=== PATIENT | male | born 1950 | race Asian ===

== ENCOUNTER 2017-09-26 12:40 | Inpatient (IN) | payer MEDICARE, MEDICAID ==
--- NOTE | 2017-09-26 13:09 | ED Physician Chart ---
ED Chief Complaint/HPI - Patient Information Date Seen:: 09/26/17 Time Seen:: 12:55 Chief Complaint:: Syncope History of Present Illness:: onset x one day of syncope episodes; no report of trauma, H/As, S/T, neck pain, C/P, cough, Abd. Pain, SOB, A/N/V/D/C, fever, chills, weakness, dizziness, vertigo, paresthesias, or urinary s/s Allergies:: Allergies Allergy/AdvReac Type Severity Reaction Status Date / Time No Known Allergies Allergy Verified 09/26/17 12:54 Vitals:: Vital Signs - 8 hr 09/26/17 12:54 Temp 99.1 F HR 107 RR 16 BP 91/52 O2 Sat % 98 Historian:: Patient Review:: Nurse's Note Reviewed ED Review of Systems - Review of Systems General/Constitutional: No fever, No chills, No weight loss, No weakness, No diaphoresis, No edema, No loss of appetite Skin: No skin lesions, No rash, No bruising Head: No headache, No light-headedness Eyes: No loss of vision, No pain, No diplopia ENT: No earache, No nasal drainage, No sore throat, No tinnitus Neck: No neck pain, No swelling, No thyromegaly, No stiffness, No mass noted Cardio Vascular: No chest pain, No palpitations, No PND, No orthopnea, No edema Pulmonary: No SOB, No cough, No sputum, No wheezing GI: No nausea, No vomiting, No diarrhea, No pain, No melena, No hematochezia, No constipation, No hematemesis G/U: No dysuria, No frequency, No hematuria, No nacturia Musculoskeletal: No bone or joint pain, No back pain, No muscle pain Endocrine: No polyuria, No polydipsia Psychiatric: No prior psych history, No depression, No anxiety, No suicidal ideation, No homicidal ideation, No auditory hallucination, No visual hallucination Hematopoietic: No bruising, No lymphadenopathy Allergic/Immuno: No urticaria, No angioedema Neurological: Syncope, No focal symptoms, No weakness, No paresthesia, No headache, No seizure, No dizziness, No confusion, No vertigo ED Past Medical History - Past Medical History Obtainable: Yes Past Medical History: HTN, DM, Dyslipidemia Family History: Diabetes Melitus, HTN Social History: Non Smoker, No Alcohol, No Drug Use, , Employed Surgical History: None Psychiatricy History: None Medication: Reviewed Family Medical History - Family Member Mother History Unknown: Yes ED Physical Exam - Physical Examination General/Constitutional: Awake, Well-developed, well-nourished, Alert, No distress, GCS 15, Non-toxic appearing, Ambulatory Head: Atraumatic Eyes: Lids, conjuctiva normal, PERRL, EOMI Skin: Nl inspection, No rash, No skin lesions, No ecchymosis, Well hydrated, No lymphadenopathy ENMT: External ears, nose nl, TM canals nl, Nasal exam nl, Lips, teeth, gums nl , Oropharynx nl, Tonsils nl Neck: Nontender, Full ROM w/o pain, No JVD, No nuchal rigidity, No bruit, No mass, No stridor Respiratory: Nl effort/Exclusion, Clear to Auscultation, No Wheeze/Rhonchi/Rales Cardio Vascular: RRR, No murmur, gallop, rubs, NL S1 S2, Carotid/Femoral/Distal pulses equal bilaterally GI: No tenderness/rebounding/guarding, No organomegaly, No hernia, Normal BS's, Nondistended, No mass/bruits, No McBurney tenderness : No CVA tenderness Extremities: No tenderness or effusion, Full ROM, normal strength in all extremities, No edema, Normal digits & nails Neuro/Psych: Alert/oriented, DTR's symmetric, Normal sensory exam, Normal motor strength, Judgement/insight normal, Mood normal, Normal gait, No focal deficits Misc: Normal back, No paraspinal tenderness ED Labs/Radiology/EKG Results - Lab Results Results: Laboratory Tests 09/26/17 12:59 POC Glucose 177 H Comments:: Na+: 128; + Anemia; BUN: 28; Cr: 1.7; H/H: 7.6/22.8 - Radiology Results Comments:: CXR: ? Infiltrates; Head CAT Scan: NAD - EKG Interpretations EKG Time:: 13:18 Rate & Rhythm: 98; NSR Comments:: VINNY; non-specific st-t changes ED Septic Shock - . Is Septic Shock (SBP<90, OR Lactate>4 mmol\L) present?: No - <6hrs of presentation: Vital Signs: Vital Signs - 8 hr 09/26/17 12:54 Temp 99.1 F HR 107 RR 16 BP 91/52 O2 Sat % 98 ED Reassessment (Disposition) - Reassessment Reassessment Condition:: Improved - Diagnosis Diagnosis:: Syncope; LOC; ALOC; AMS; DM; HTN; Hyperlipidemia; Anemia; Hyponatremia; Dehydration; GI Bleed; PNA; Sepsis - Aftercare/Follow up Instructions Aftercare/Follow-Up Instructions:: Counseled pt regarding lab results/diagnosis & need follow up, Counseled pt & family regarding lab results/diagnosis & need follow up - Patient Disposition Discharge/Transfer:: Acute Care w/in this hosp Accepting Physician:: Dr. White Time Called:: [id number] Time Responded:: 14:45 Admitted to:: Telemetry Spoke to:: Dr. White Admitting Medical Physician:: Dr. White Condition at Disposition:: Stable, Improved
[2017-09-26 13:20] LABS: % LYMPHOCYTES 27.8 % (20.0-50.0); BASOPHILE ABSOLUTE 0.1 Th/cumm (0-0.2); EOSINOPHILE ABSOLUTE 0.7 Th/cmm (0.1-0.4); LYMPHOCYTE ABSOLUTE 2.2 Th/cmm (1.5-3.0); MONOCYTE ABSOLUTE 0.4 Th/cmm (0.3-1.0)
[2017-09-26 13:25] LABS: % BASOPHILS 1.3 % (0.0-2.0); % EOSINOPHILS 9.3 % (0.0-5.0); % NEUTROPHILS 56.6 % (40.0-80.0); MEAN CELL VOLUME 97.3 fl (80-99); MEAN CORPUSCULAR HEMOGLOBIN 32.2 pg (27.0-31.0); MEAN CORPUSCULAR HGB CONC 33.1 pg (28.0-36.0); MEAN PLATELET VOLUME 6.4 fl; NEUTROPHILE ABSOLUTE 4.4 Th/cmm (1.8-8.0); PLATELET COUNT 319 Th/cmm (150-400); RED BLOOD COUNT 2.35 Mil/cmm (3.80-5.80); RED CELL DISTRIBUTION WIDTH 13.6 % (11.5-20.0); WHITE BLOOD COUNT 7.8 Th/cmm (4.8-10.8)
[2017-09-26 13:27] LABS: HEMATOCRIT 22.8 % (41.0-60); HEMOGLOBIN 7.6 gm/dL (12-16)
[2017-09-26 13:32] LABS: INR 0.92 (0.5-1.4); PROTHROMBIN TIME (TEST) 9.6 SECONDS (9.5-11.5)
[2017-09-26 13:37] LABS: ANION GAP 11.2 (7.0-16.0); BILIRUBIN,TOTAL 0.2 mg/dL (0.3-1.0); CALCIUM SERUM 9.3 mg/dL (8.6-10.3); CARBON DIOXIDE 23.8 mEq/L (21.0-31.0); CREATININE - SERUM 1.7 mg/dL (0.7-1.3); GFR NON AFRICAN-AMERICAN 42.9 ml/min
--- NOTE | 2017-09-26 13:51 | Diagnostic Imaging Report ---
Head CT without intravenous contrast Indication: Syncope Comparison: None Technique: Axial images were obtained from the vertex to the skull base without IV contrast. Coronal reconstructions were made. Total DLP: 559, CTDI31.8 FINDINGS: Images of the brain obtained without contrast demonstrate no acute hemorrhage. No mass lesions identified. The ventricles and basal cisterns are patent. The herman-white matter differentiation is preserved. There is no mass effect or midline shift. Atherosclerosis is noted. There is opacification of the left mastoid air cells. No skull fractures identified. No soft tissue swelling. The paranasal sinuses are clear. IMPRESSION: No acute intracranial abnormality. Atherosclerotic vascular disease. Left mastoid air cell disease, correlate clinically.
[2017-09-26] MEDS ORDERED: Sodium Chloride 0.9% 1,000 ML IV ONE (14:05)
--- NOTE | 2017-09-26 14:25 | Diagnostic Imaging Report ---
CHEST X-RAY: AP view INDICATION: pain COMPARISON: None FINDINGS: There is accentuation of the interstitial lung markings. No focal consolidation. There may be trace left effusion. Heart size normal. Atherosclerosis is noted. Degenerative changes of the spine are noted. IMPRESSION: Accentuation of the interstitial lung markings which may be due to chronic lung changes, however, faint interstitial infiltrate of the left upper lung zone and right lung base cannot be excluded. Clinical correlation recommended. Atherosclerotic vascular disease.
[2017-09-26] MEDS ORDERED: Levofloxacin 500mg/100mL 500 MG/100 ML BAG IV ONE ×2 (16:23→16:29)
[2017-09-26] MEDS ORDERED: Pneumococcal Vaccine 0.5 mL Vial IM ONE (20:17)
[2017-09-26] MEDS ORDERED: Albumin 25% 25gm/100mL 25 GM/100 ML BTL IV ONE ×2 (22:27→22:42)
[2017-09-27] MEDS ORDERED: Albumin 25% 25gm/100mL 25 GM/100 ML BTL IV ONE ×2 (01:00→05:32)
[2017-09-27 05:04] LABS: MEAN CELL VOLUME 97.7 fl (80-99); MEAN CORPUSCULAR HEMOGLOBIN 33.1 pg (27.0-31.0); MEAN CORPUSCULAR HGB CONC 33.9 pg (28.0-36.0); MEAN PLATELET VOLUME 6.2 fl; RED BLOOD COUNT 2.05 Mil/cmm (3.80-5.80); RED CELL DISTRIBUTION WIDTH 13.3 % (11.5-20.0); WHITE BLOOD COUNT 7.2 Th/cmm (4.8-10.8)
[2017-09-27 05:17] LABS: HEMOGLOBIN 6.8 gm/dL (12-16); PLATELET COUNT 255 Th/cmm (150-400)
[2017-09-27] MEDS ORDERED: Sodium Chloride 0.9% 500 ML IV ONE (05:31)
[2017-09-27 05:59] LABS: ANION GAP 11.4 (7.0-16.0); CHLORIDE 109 mEq/L (98-107); GLUCOSE 109 mg/dL (70-105); POTASSIUM SERUM 4.4 mEq/L (3.5-5.1); SODIUM SERUM 136 mEq/L (136-145)
[2017-09-27 06:00] LABS: BUN - UREA NITROGEN 18 mg/dL (7-25); CALCIUM SERUM 8.6 mg/dL (8.6-10.3); GFR AFRICAN-AMERICAN > 60.0 ml/min (>90); GFR NON AFRICAN-AMERICAN > 60.0 ml/min
[2017-09-27 06:01] LABS: BAND NEUTROPHILE 1 % (0-10); EOSINOPHIL 3 % (0-5); LYMPHOCYTE 32 % (20-50); MONOCYTE 5 % (2-10); NEUTROPHILS 49 % (40-80)
[2017-09-27] MEDS: Sodium Chloride 0.9% 1,000 ML IV SCH ×2 (06:11→18:22)
[2017-09-27] MEDS ORDERED: VTE Chemical Prophylaxis Screen/Admission MC PRN (11:45)
[2017-09-27] MEDS ORDERED: Pantoprazole 40 mg/Packet PO SCH (15:15)
[2017-09-27 15:38] LABS: HEMOGLOBIN 9.5 gm/dL (12-16)
[2017-09-27 15:39] LABS: HEMATOCRIT 27.8 % (41.0-60)
--- NOTE | 2017-09-27 17:14 | History & Physical ---
ADMIT DATE: HISTORY OF PRESENT ILLNESS: The patient admitted from the Emergency Room because of syncopal episode, reported no trauma. No chest pain, no shortness of breath. No weakness, no dizziness, no paresthesia. Apparently found to have a low hemoglobin. The patient's blood pressure was low, was admitted to the ICU. REVIEW OF SYSTEMS: The patient has no fever, no chills, no other problems. PAST MEDICAL HISTORY: History of hypertension, diabetes, and hyperlipidemia. PHYSICAL EXAMINATION: GENERAL: Alert, oriented, not in acute distress. VITAL SIGNS: Stable. HEAD: Normal. ENT: Normal. NECK: Supple, nontender. LUNGS: Clear. CARDIOVASCULAR SYSTEM: S1, S2 heard. ABDOMEN: Soft. LABORATORY DATA: Sodium was low at 128. Anemia, hemoglobin was low. BUN and creatinine was high at 28 and 1.7. A chest x-ray showed possible infiltrate, CAT scan was normal. EKG showed non-ST-T changes, VINNY. DIAGNOSES: Syncopal episode, altered level of consciousness, encephalopathy, hypotension, severe anemia, hyperlipidemia, history of diabetes, history of hypertension, hyponatremia, and history of rule out gastrointestinal bleeding, possible pneumonia, rule out sepsis. The patient was admitted and I will go ahead and give a blood transfusion if needed and we will have GI doctor see the patient. We will have Cardiology see the patient and we will give the fluids and we will also give IV antibiotic. We will have Dr. Robert see the patient. We will follow the patient. JOB# [id number]
[2017-09-27] MEDS: cefTRIAXone 1 GM in Sodium Chloride 0.9% 50 ML IV SCH (18:20)
[2017-09-27] MEDS ORDERED: Morphine Sulfate 2 mg/mL 1mL Syr IM PRN (18:55)
[2017-09-27] MEDS: Morphine Sulfate 2 mg/mL 1mL Syr IVP PRN ×2 (19:10→23:20)
--- NOTE | 2017-09-28 00:18 | Consultation ---
DATE OF CONSULTATION: 09/27/2017 HISTORY OF PRESENT ILLNESS: This 67-year-old male patient who was brought to the hospital complaining of syncopal episode. The patient during hospital stay, found to have severe anemia, following this, the patient is admitted to ICU. No complaint of chest pain, no palpitation. PAST MEDICAL HISTORY: The patient has a history of hyperlipidemia, hypertension, and diabetes mellitus type 2. FAMILY HISTORY: Unremarkable. SOCIAL HISTORY: No history of smoking, alcohol abuse. ALLERGIES: No known allergies. PHYSICAL EXAMINATION: VITAL SIGNS: Blood pressure 130/80, pulse 70, respirations 20, and temperature 98. HEAD: Normocephalic. No lumps or bumps. EYES: Pupils equal, reactive to light. Fundi show AV nicking, sclerae white, conjunctivae pink. NECK: Carotid 2+. Normal upstroke. JVD flat. Thyroid not palpable. Lymph nodes not palpable. CHEST: Shows increased AP diameter. No kyphosis, scoliosis. LUNGS: Bilateral bronchovesicular breath sounds. HEART: PMI fifth intercostal space with lateral to midclavicular line. S1, S2. No S3, S4, soft systolic murmur. ABDOMEN: Soft. Liver, spleen not palpable. No organomegaly. Bowel sounds active. NEUROLOGIC: No focal neurological deficit. EXTREMITIES: Peripheral pulses 2+. No pedal edema. CLINICAL IMPRESSION: Syncope, etiology unknown; severe anemia, rule out gastrointestinal bleed; chronic kidney disease, stage II; hyperlipidemia; hypertension; and diabetes mellitus type 2. PLAN: Admit the patient. We will monitor the patient for GI bleed and arrhythmias. The patient has slightly elevated troponin level, probably nonspecific. We will also get an echocardiogram and carotid duplex study. CT scan of the brain. JOB# [id number]
[2017-09-28] MEDS: Morphine Sulfate 2 mg/mL 1mL Syr IVP PRN ×4 (02:40→12:49)
[2017-09-28 05:26] LABS: % BASOPHILS 0.8 % (0.0-2.0); % EOSINOPHILS 4.7 % (0.0-5.0); % LYMPHOCYTES 15.6 % (20.0-50.0); % MONOCYTES 5.3 % (2.0-10.0); % NEUTROPHILS 73.6 % (40.0-80.0); BASOPHILE ABSOLUTE 0.1 Th/cumm (0-0.2); EOSINOPHILE ABSOLUTE 0.5 Th/cmm (0.1-0.4); HEMATOCRIT 31.1 % (41.0-60); HEMOGLOBIN 10.5 gm/dL (12-16); LYMPHOCYTE ABSOLUTE 1.5 Th/cmm (1.5-3.0); MEAN CELL VOLUME 93.5 fl (80-99); MEAN CORPUSCULAR HEMOGLOBIN 31.7 pg (27.0-31.0); MEAN CORPUSCULAR HGB CONC 33.9 pg (28.0-36.0); MEAN PLATELET VOLUME 6.7 fl; MONOCYTE ABSOLUTE 0.5 Th/cmm (0.3-1.0); NEUTROPHILE ABSOLUTE 7.1 Th/cmm (1.8-8.0); PLATELET COUNT 292 Th/cmm (150-400); RED BLOOD COUNT 3.33 Mil/cmm (3.80-5.80); RED CELL DISTRIBUTION WIDTH 15.9 % (11.5-20.0); WHITE BLOOD COUNT 9.7 Th/cmm (4.8-10.8)
[2017-09-28] MEDS: Sodium Chloride 0.9% 1,000 ML IV SCH (05:32)
[2017-09-28 05:38] LABS: INR 0.95 (0.5-1.4); PROTHROMBIN TIME (TEST) 9.9 SECONDS (9.5-11.5)
[2017-09-28 05:40] LABS: ANION GAP 12.6 (7.0-16.0); BUN - UREA NITROGEN 11 mg/dL (7-25); CALCIUM SERUM 8.7 mg/dL (8.6-10.3); CARBON DIOXIDE 19.3 mEq/L (21.0-31.0); CHLORIDE 108 mEq/L (98-107); CREATININE - SERUM 0.7 mg/dL (0.7-1.3); GFR AFRICAN-AMERICAN > 60.0 ml/min (>90); GFR NON AFRICAN-AMERICAN > 60.0 ml/min; GLUCOSE 119 mg/dL (70-105); POTASSIUM SERUM 3.9 mEq/L (3.5-5.1); SODIUM SERUM 136 mEq/L (136-145)
[2017-09-28] MEDS ORDERED: Lidocaine 2% Gel 5 mL TP ONE (09:50)
[2017-09-28] MEDS ORDERED: Propofol 10 mg/mL 20mL Vial **SURGERY USE ONLY IV ONE (09:50)
[2017-09-28] MEDS ORDERED: Pantoprazole 80 MG in Sodium Chloride 0.9% 100 ML IV SCH (12:00)
--- NOTE | 2017-09-28 12:26 | General Progress Note ---
Subjective - Review of Systems Events since last encounter: no cp no sob s/p syncope severe anemia Objective - Results Result Diagrams: 09/28/17 04:40 09/28/17 04:40 Recent Labs: Laboratory Last Values WBC 9.7 Th/cmm (4.8-10.8) 09/28/17 04:40 RBC 3.33 Mil/cmm (3.80-5.80) L 09/28/17 04:40 Hgb 10.5 gm/dL (12-16) L 09/28/17 04:40 Hct 31.1 % (41.0-60) L 09/28/17 04:40 MCV 93.5 fl (80-99) 09/28/17 04:40 MCH 31.7 pg (27.0-31.0) H 09/28/17 04:40 MCHC Differential 33.9 pg (28.0-36.0) 09/28/17 04:40 RDW 15.9 % (11.5-20.0) 09/28/17 04:40 Plt Count 292 Th/cmm (150-400) 09/28/17 04:40 MPV 6.7 fl 09/28/17 04:40 Add Manual Diff YES 09/27/17 04:45 Neutrophils % 73.6 % (40.0-80.0) 09/28/17 04:40 Band Neutrophils % 1 % (0-10) 09/27/17 04:45 Lymphocytes % 15.6 % (20.0-50.0) L 09/28/17 04:40 Monocytes % 5.3 % (2.0-10.0) 09/28/17 04:40 Eosinophils % 4.7 % (0.0-5.0) 09/28/17 04:40 Basophils % 0.8 % (0.0-2.0) 09/28/17 04:40 Neutrophils (Manual) 49 % (40-80) 09/27/17 04:45 Lymphocytes 32 % (20-50) 09/27/17 04:45 Monocytes 5 % (2-10) 09/27/17 04:45 Eosinophils 3 % (0-5) 09/27/17 04:45 PT 9.9 SECONDS (9.5-11.5) 09/28/17 04:40 INR 0.95 (0.5-1.4) 09/28/17 04:40 Sodium 136 mEq/L (136-145) 09/28/17 04:40 Potassium 3.9 mEq/L (3.5-5.1) 09/28/17 04:40 Chloride 108 mEq/L (98-107) H 09/28/17 04:40 Carbon Dioxide 19.3 mEq/L (21.0-31.0) L 09/28/17 04:40 Anion Gap 12.6 (7.0-16.0) 09/28/17 04:40 BUN 11 mg/dL (7-25) 09/28/17 04:40 Creatinine 0.7 mg/dL (0.7-1.3) 09/28/17 04:40 Est GFR ( Amer) > 60.0 ml/min (>90) 09/28/17 04:40 Est GFR (Non-Af Amer) > 60.0 ml/min 09/28/17 04:40 BUN/Creatinine Ratio 15.7 09/28/17 04:40 Glucose 119 mg/dL (70-105) H 09/28/17 04:40 POC Glucose 110 MG/DL (70 - 105) H 09/28/17 09:11 Calcium 8.7 mg/dL (8.6-10.3) 09/28/17 04:40 Total Bilirubin 0.2 mg/dL (0.3-1.0) L 09/26/17 13:13 AST 26 U/L (13-39) 09/26/17 13:13 ALT 26 U/L (7-52) 09/26/17 13:13 Alkaline Phosphatase 39 U/L (34-104) 09/26/17 13:13 Creatine Kinase 190 U/L (30-223) 09/26/17 13:13 Troponin I 0.06 ng/mL (0.01-0.05) H 09/26/17 13:13 B-Natriuretic Peptide 22.8 pg/mL (5.0-100.0) 09/26/17 13:13 Total Protein 6.0 gm/dL (6.0-8.3) 09/26/17 13:13 Albumin 4.0 gm/dL (4.2-5.5) L 09/26/17 13:13 Globulin 2.0 gm/dL 09/26/17 13:13 Albumin/Globulin Ratio 2.0 (1.0-1.8) H 09/26/17 13:13 Triglycerides 234 mg/dL (<150) H 09/26/17 13:13 Cholesterol 145 mg/dL (<200) 09/26/17 13:13 LDL Cholesterol Direct 76 mg/dL (75-193) 09/26/17 13:13 HDL Cholesterol 33 mg/dL (23-92) 09/26/17 13:13 Blood Type O POSITIVE 09/27/17 06:00 Antibody Screen NEGATIVE 09/27/17 06:00 Crossmatch See Detail 09/27/17 06:00 - Physical Exam Vitals and I&O: Vital Signs Temp 98.6 F 09/28/17 04:00 Pulse 83 09/28/17 08:51 Resp 20 09/28/17 12:00 BP 150/75 09/28/17 08:51 Pulse Ox 96 09/28/17 04:00 Intake & Output 09/27/17 09/28/17 09/28/17 18:59 06:59 18:59 Intake Total 2250 1171.667 Output Total 1625 975 Balance 625 196.667 Weight (lbs) 45.677 kg 45.677 kg Intake: Intake, IV Amount 1000 1171.667 Sodium Chloride 0.9% 1, 1000 1121.667 000 ml @ 100 mls/hr IV . Q10H [facility] Rx#:[id number] cefTRIAXone 1 gm In 50 Sodium Chloride 0.9% 50 ml @ 100 mls/hr IV Q24HR [facility] Rx#:[id number] Oral 750 Blood Product 500 Output: Urine 1625 975 Other: # Bowel Movements 0 1 Weight Source Bedscale Bedscale Active Medications: Current Medications Gabapentin (Neurontin) 300 mg PO DAILY [facility] Stop: 11/26/17 08:59 Last Admin: 09/28/17 08:51 Dose: Not Given Sodium Chloride (Nacl 0.9%) 1,000 mls @ 100 mls/hr IV .Q10H [facility] Stop: 11/26/17 05:44 Last Infusion: 09/28/17 06:45 Dose: 100 mls/hr Ceftriaxone Sodium 1 gm/ (Sodium Chloride) 50 mls @ 100 mls/hr IV Q24HR [facility] Stop: 11/26/17 17:14 Last Infusion: 09/27/17 19:00 Dose: Infused Pantoprazole Sodium 80 mg/ (Sodium Chloride) 100 mls @ 10 mls/hr IV Q10H [facility] Stop: 11/27/17 11:59 Last Admin: 09/28/17 11:30 Dose: 10 mls/hr Lisinopril (Zestril) 10 mg PO DAILY [facility] Stop: 11/26/17 08:59 Last Admin: 09/28/17 08:51 Dose: Not Given Metformin HCl (Glucophage) 500 mg PO BID [facility] Stop: 11/26/17 08:59 Last Admin: 09/28/17 10:05 Dose: Not Given Miscellaneous (Vte Chemical Prophylaxis Screen/ Admission) 1 ea [facility] PRN PRN PRN Reason: PROTOCOL Stop: 11/26/17 11:44 Morphine Sulfate (Morphine) 2 mg IVP Q4HR PRN PRN Reason: Abdominal Pain, SEVERE PAIN Stop: 11/26/17 18:55 Last Admin: 09/28/17 05:43 Dose: 2 mg Morphine Sulfate (Morphine) 1 mg IVP Q4HR PRN PRN Reason: Abdominal Pain, MODERATE PAIN Stop: 11/26/17 18:57 Last Admin: 09/28/17 09:01 Dose: 1 mg Ondansetron HCl (Zofran) 4 mg IV Q6H PRN PRN Reason: Nausea / Vomiting Stop: 11/26/17 19:04 Simvastatin (Zocor) 10 mg PO HS [facility]; Protocol Stop: 11/26/17 20:59 Last Admin: 09/27/17 21:00 Dose: 10 mg - Procedures Procedures: Procedures Procedure Code Date TRANSFUSE NONAUT RED BLOOD CELLS IN PERIPH VEIN, [facility] 86127L0 09/26/17
--- NOTE | 2017-09-28 13:03 | Operative Report ---
DATE OF SURGERY: 09/28/2017 INPATIENT EGD AND FLEXIBLE SIGMOIDOSCOPY REPORT PROCEDURE PERFORMED: EGD with biopsy and flexible sigmoidoscopy. ENDOSCOPIST: Ronen Holguin MD PREOPERATIVE DIAGNOSES: Anemia and abdominal pain. POSTOPERATIVE DIAGNOSES: Duodenal ulcers and poor bowel preparation. INDICATION: The patient is a 67-year-old male, who is admitted after a syncopal episode at home and found to be anemic to hemoglobin of 7.0. He also reported having abdominal pain and thus the patient was taken for EGD and attempted colonoscopy. CONSENT: Informed consent was obtained from the patient. The risks and benefits of the procedure were discussed, include but not limited to infection, bleeding, perforation, need for surgery, cardiopulmonary complications, missed pathology and . The patient indicated his understanding of these risks and wished to go forward with the procedure and signed the consent form. ANESTHESIA: The procedure was done in the main operating room under the care of a general anesthesiologist using propofol. PROCEDURE IN DETAIL: The patient was hooked up to the appropriate monitoring devices and general anesthesia was applied. The patient was in the left lateral decubitus position and a mouthpiece was inserted and secured. Next, the gastroscope was introduced into the mouth and guided under direct visualization into the esophagus, stomach and duodenum. The scope was then slowly withdrawn, making sure to examine the entire mucosa in a careful systematic fashion. Retroflexion was performed in the stomach prior to scope straightening and withdrawal from the body. Next, the patient was repositioned into the colonoscopy position. Rectal exam was performed and the scope was then introduced into the anus and guided under direct visualization to the level of the sigmoid colon. However, the bowel preparation was very poor and there was solid stool that could not be suctioned through the scope and thus the procedure was aborted. There was no obvious sign of complication at the end of the procedure. FINDINGS: EGD portion, esophagus: The GE junction was located at 41 cm from the incisors. There was no evidence of esophagitis or esophageal lesion or Swanson's esophagus. Stomach portion: About 300 mL of retained fluid was within the stomach and this was able to be suctioned out. There was no gastric lesion, mass or ulcer within the gastric body or antrum or fundus. There were no varices or gastric varices. Biopsies were taken from the antrum for both histology and LORA testing. Duodenum: Within the duodenal bulb, there were several large ulcers with surrounding erythema and heaped up edges. The ulcer bed had a clean base and there was no visible vessel evidence of recent bleeding. Biopsies were taken from the ulcer edge in several areas. The second portion of the duodenum appeared endoscopically normal. Flexible sigmoidoscopy portion: The examined portion of the rectum and sigmoid appeared normal, although the views were severely limited by the poor bowel preparation. IMPRESSION: 1. Large duodenal bulb ulcer status post biopsies. 2. Poor bowel preparation. DISCUSSION: It is likely that the patient's anemia and bleeding is from the duodenal ulcers as these were quite impressive on exam. This might be due to H. pylori disease or NSAID use and we will have to await the biopsy results. I believe that the patient also likely is suffering some gastric outlet obstruction pathology given the duodenal ulcers are causing an edema effect and not allowing much fluid to pass through into the duodenum. RECOMMENDATIONS: 1. We will place the patient on a PPI drip for the next 24 hours and then he can be on PPI b.i.d. dosing after this. 2. Follow up the gastric and duodenal biopsies. If there is H. pylori there, he will need treatment. 3. The source of the patient's pain and anemia is likely the duodenal ulcer, although we will have to talk with the patient about whether he would like to go forward with another colonoscopy. I do believe this would be preferred to be done as an outpatient after the duodenal ulcers have healed as the edema is preventing him from having a full bowel prep at this time. 4. We will start the patient on clears and see how he does with this. Thank you for allowing me to participate in his care. Please call with any further questions. [facility]# [id number]
[2017-09-28] MEDS: cefTRIAXone 1 GM in Sodium Chloride 0.9% 50 ML IV SCH (16:51)
--- NOTE | 2017-09-28 23:38 | Consultation ---
DATE OF CONSULTATION: 09/28/2017 CONSULTING PHYSICIAN: Dr. White. REASON FOR CONSULTATION: Anemia and abdominal pain. HISTORY OF PRESENT ILLNESS: The patient is a 67-year-old male with past medical history significant for hypertension, type 2 diabetes, and hyperlipidemia who comes into the hospital after a syncopal episode at home. In the ER, the patient was found to have hemoglobin of 7.0, which dropped into the low 6 range. He has since been resuscitated with blood products and now has hemoglobin of 9. The patient denies seeing any black colored stool, hematemesis or coffee ground emesis. However, he does report some abdominal pain and distention. It was for this reason that GI was asked for consultation. PAST MEDICAL HISTORY: Hypertension, type 2 diabetes, hyperlipidemia. PAST SURGICAL HISTORY: The patient denies any abdominal surgeries. FAMILY HISTORY: Noncontributory. SOCIAL HISTORY: The patient denies any smoking or illicit drug use. REVIEW OF SYSTEMS: A 12-point review of systems was performed. The patient has negative other than the pertinent positives mentioned in the history of present illness. ALLERGIES: No known drug allergies. MEDICATIONS: Ceftriaxone, gabapentin, lisinopril, metformin, morphine as needed, Zofran as needed, Protonix daily dosing, and Zocor. PHYSICAL EXAMINATION: VITAL SIGNS: Blood pressure is 150/75, pulse 83 beats per minute, temperature is 98.6, oxygenation 96%. GENERAL: The patient is lying flat in bed, alert and oriented x 3. He appears anxious and in pain. HEENT: Normocephalic, atraumatic. Pupils are equal and reactive to light. Extraocular muscles are intact. Moist mucous membranes. NECK: Supple. No JVD or thyromegaly. LUNGS: Reduced breath sounds at the bases with some crackles. CARDIOVASCULAR: S1, S2 are present, regular rate and rhythm. ABDOMEN: Some mild distention, no guarding, no rebound. Soft on palpation. There is tenderness to palpation and diffusely. EXTREMITIES: 1+ pitting edema bilaterally. Pulses are not present. SKIN: There are no obvious jaundice or cyanosis. LABORATORY DATA: White blood cell count is 9.7, hemoglobin 10.5, on admission it was 7.6, platelet count is 292. INR 0.9. Sodium is 136, BUN is 11, creatinine 0.7, AST is 26, ALT 26, total bilirubin 0.2. There is no abdominal imaging has been performed. IMPRESSION: 1. This is a 67-year-old male who comes into the hospital after a syncopal episode who was noted to have anemia down to 7. The patient also eports abdominal pain and thus is here for GI consultation. 2. Anemia. 3. Epigastric abdominal pain. 4. Abdominal distention. 5. Syncopal episode. 6. History of hypertension, hyperlipidemia, type 2 diabetes. DISCUSSION: Given that this patient is anemic without obvious cause, an endoscopic examination is warranted to look for any evidence of GI related blood loss. The patient also has abdominal pain and thus differential diagnosis includes such entities as peptic ulcer disease, gastric or colonic malignancy or colonic ulceration. RECOMMENDATION: 1. We will attempt EGD and colonoscopy with a bowel preparation the night before with general anesthesia. 2. We will increase the Protonix to twice daily dosing. 3. Continue to trend the hemoglobin and keep this above 8. 4. Further recommendations to follow the endoscopy. 5. Keep n.p.o. until after endoscopy. Thank you for allowing me to participate in his care. Please call me if you have further questions. JOB# [id number]
--- NOTE | 2017-09-29 15:34 | Pathology Report ---
[id number] Collection Date: 09/28/2017 Surgeon: Dr. Sejal Holguin Specimen Description: 1. Duodenal ulcer biopsy 2. Antrum biopsy Gross Description: Part I: Received in formalin are multiple cheek soft tissue fragments, ranging from 0.1 to 0.2 cm in greatest dimension. Totally submitted in one cassette labeled A. Gross Description: Part II: Received in formalin are multiple cheek soft tissue fragments, ranging from 0.1 to 0.2 cm in greatest dimension. Totally submitted in one cassette labeled B. Microscopic Description: Part I: The histologic sections show duodenal mucosa with acute and chronic inflammation present, consisting of increased numbers of neutrophils admixed with lymphocytes and plasma cells. The intestinal villi are generally intact and show no evidence for villous abnormality. Diagnosis: Part I: 1. Nonspecific acute and chronic inflammation consistent with duodenitis (duodenal ulcer biopsy). 2. There is no evidence for celiac disease/sprue. Microscopic Description: Part II: The histologic sections show gastric mucosa with chronic inflammation present consisting of increased numbers of lymphocytes and plasma cells. The Giemsa stain shows focal areas containing curved bacilli which are morphologically consistent with the presence of Helicobacter pylori. Diagnosis: Part II: 1. Chronic gastritis, antrum biopsy. 2. The Giemsa stain is focally positive for Helicobacter pylori. [facility]# [id number] [facility]ITALMohinder
--- NOTE | 2017-10-05 20:33 | Discharge Summary ---
DATE OF DISCHARGE: 09/28/2017 The patient admitted from the Emergency Room for syncopal episode and altered level of consciousness, encephalopathy, and severe anemia. The patient's hemoglobin was found to be 6, requiring blood transfusion. The patient improved, was seen by the GI doctor, and since this patient belonged to the ____, the patient was transferred to [place] for further care. CONDITION AT TIME OF DISCHARGE: Stable. FINAL DIAGNOSES: GI bleeding, anemia, syncope, history of diabetes, and history of hypertension. JOB# [id number]
== END 2017-09-28 19:01 | disposition short-term general hospital (02) | DRG 871 ==
LOC: ER 12:40 → TELE 18:00 → ICU 20:05
PROVIDERS: ADMIT Internal Medicine; ATTEND Internal Medicine
PROC: 30233N1 Transfusion of Nonautologous Red Blood Cells into Peripheral Vein, Percutaneous Approach (ICD-10-PCS; 2017-09-27)
PROC: 0DB98ZX Excision of Duodenum, Via Natural or Artificial Opening Endoscopic, Diagnostic (ICD-10-PCS; principal; 2017-09-28)
PROC: 0DB68ZX Excision of Stomach, Via Natural or Artificial Opening Endoscopic, Diagnostic (ICD-10-PCS; 2017-09-28)
PROC: 0DJD8ZZ Inspection of Lower Intestinal Tract, Via Natural or Artificial Opening Endoscopic (ICD-10-PCS; 2017-09-28)
DX: A41.9 Sepsis, unspecified organism (principal); J69.0 Pneumonitis due to inhalation of food and vomit; K26.4 Chronic or unspecified duodenal ulcer with hemorrhage; G93.40 Encephalopathy, unspecified; N17.0 Acute kidney failure with tubular necrosis; E87.1 Hypo-osmolality and hyponatremia; D62 Acute posthemorrhagic anemia; R55 Syncope and collapse; I95.9 Hypotension, unspecified; E86.0 Dehydration; E78.5 Hyperlipidemia, unspecified; I12.9 Hypertensive chronic kidney disease with stage 1 through stage 4 chronic kidney disease, or unspecified chronic kidney disease; N18.2 Chronic kidney disease, stage 2 (mild); E11.22 Type 2 diabetes mellitus with diabetic chronic kidney disease; Z83.3 Family history of diabetes mellitus; Z82.49 Family history of ischemic heart disease and other diseases of the circulatory system
CPT/HCPCS: 36415-UA; 70450-TC; 71045-TC; 80048-TC; 80053-TC; 80061-TC; 82550-TC; 82948-90; 83880-TC; 84484-TC; 85007-TC; 85014-TC; 85018-TC; 85025-TC; 85610-TC; 86850-TC; 86900-TC; 86901-TC; 86922-TC; 87338-TC; 88305-90; 88312-90; 93005; 94760; 96375; C9113; J0696; J1956; J2001; J2270; J2405; J2704; J7030; J7040; P9016; P9046; Z7506; Z7610